=== PATIENT | female | born 1950 ===

== ENCOUNTER 2016-09-15 22:55 | Inpatient (IN) | payer MEDICARE, MEDICAID ==
[~2016-09-15] VITALS: Ht 152.4 cm; Wt 47.4 kg
[2016-09-16] VITALS (7 sets, daily range): BP systolic 131–164; RESP 16–20; TEMP 97.3–98.4; Ht 152.4 cm; Wt 47.4 kg
[2016-09-16] MEDS ORDERED: CEFTRIAXONE 1 GM VIAL ONE (02:12)
[2016-09-16] MEDS ORDERED: SODIUM CHLORIDE 0.9% 100 ML IV ONE (02:13)
[2016-09-16] MEDS ORDERED: SALINE FLUSH 10 ML FLUSH PRN (02:20)
[2016-09-16] MEDS ORDERED: SODIUM CHLORIDE 0.9% 1,000 ML ONE (02:43)
[2016-09-16] MEDS: SODIUM CHLORIDE 0.9% FLUSH BAG 500 ML IV SCH (05:57)
[2016-09-16] MEDS: SODIUM CHLORIDE 0.9% 1,000 ML IV SCH ×2 (05:57→15:53)
[2016-09-16] MEDS: LEVOTHYROXINE 0.1 MG TAB PO SCH (07:00)
[2016-09-16] MEDS ORDERED: MISSING DOSE XX ONE ×3 (07:55→18:15)
[2016-09-16] MEDS: SALINE FLUSH 10 ML FLUSH SCH ×2 (08:00→20:00)
[2016-09-16] MEDS: CEFTRIAXONE 1 GM in SODIUM CHLORIDE 0.9% 50 ML IV SCH (08:43)
[2016-09-16] MEDS: ACETAMINOPHEN 325 MG TAB PO PRN (13:26)
[2016-09-16] MEDS: NICOTINE 21 MG/24 HR TRANSDERM SCH (17:24)
[2016-09-16] MEDS: KETOROLAC 30 MG/ML VIAL IV SCH (18:37)
[2016-09-17] MEDS: SODIUM CHLORIDE 0.9% FLUSH BAG 500 ML IV SCH (06:00)
[2016-09-17 07:50] VITALS: BP_SYST 155; RESP 16; TEMP 98.3
[2016-09-17] MEDS: SALINE FLUSH 10 ML FLUSH SCH ×2 (07:57→20:28)
[2016-09-17] MEDS: KETOROLAC 30 MG/ML VIAL IV SCH ×3 (08:03→16:00)
[2016-09-17] MEDS: LEVOTHYROXINE 0.1 MG TAB PO SCH (08:04)
[2016-09-17] MEDS: CEFTRIAXONE 1 GM in SODIUM CHLORIDE 0.9% 50 ML IV SCH (09:49)
[2016-09-17] MEDS: NICOTINE 21 MG/24 HR TRANSDERM SCH (09:50)
[2016-09-17 11:32] VITALS: BP_SYST 154; RESP 16; TEMP 98.5
[2016-09-17 15:40] VITALS: BP_SYST 174; RESP 16; TEMP 98.5
[2016-09-17 19:27] VITALS: BP_SYST 140; RESP 18; TEMP 98.7
[2016-09-17 20:08] VITALS: BP_SYST 102; RESP 22; TEMP 97.6
[2016-09-17] MEDS: ACETAMINOPHEN 325 MG TAB PO PRN (20:25)
[2016-09-17 23:12] VITALS: BP_SYST 175; RESP 20; TEMP 97.2
[2016-09-18 03:44] VITALS: BP_SYST 131; RESP 18; TEMP 98
[2016-09-18] MEDS: ACETAMINOPHEN 325 MG TAB PO PRN ×2 (03:55→12:05)
[2016-09-18] MEDS: SODIUM CHLORIDE 0.9% FLUSH BAG 500 ML IV SCH (03:59)
[2016-09-18] MEDS: LEVOTHYROXINE 0.1 MG TAB PO SCH (03:59)
[2016-09-18] MEDS: KETOROLAC 30 MG/ML VIAL IV SCH ×4 (07:37→23:28)
[2016-09-18 08:03] VITALS: BP_SYST 143; RESP 18; TEMP 98.3
[2016-09-18] MEDS: NICOTINE 21 MG/24 HR TRANSDERM SCH (09:22)
[2016-09-18] MEDS: SALINE FLUSH 10 ML FLUSH SCH ×2 (09:22→20:29)
[2016-09-18] MEDS: CEFTRIAXONE 1 GM in SODIUM CHLORIDE 0.9% 50 ML IV SCH (09:23)
[2016-09-18 11:23] VITALS: BP_SYST 146; RESP 18; TEMP 98.6
[2016-09-18] MEDS: GABAPENTIN 100 MG CAP PO SCH ×3 (12:08→20:29)
[2016-09-18 16:59] VITALS: BP_SYST 167; RESP 18; TEMP 99
[2016-09-18 20:07] VITALS: BP_SYST 154; RESP 16; TEMP 98.4
[2016-09-19 03:52] VITALS: BP_SYST 110; RESP 18; TEMP 97.8
[2016-09-19] MEDS: LEVOTHYROXINE 0.1 MG TAB PO SCH (06:23)
[2016-09-19] MEDS: SODIUM CHLORIDE 0.9% FLUSH BAG 500 ML IV SCH (06:23)
[2016-09-19] MEDS: ACETAMINOPHEN 325 MG TAB PO PRN ×3 (06:24→20:00)
[2016-09-19 07:41] VITALS: BP_SYST 133; RESP 18; TEMP 98.2
[2016-09-19] MEDS: SALINE FLUSH 10 ML FLUSH SCH ×2 (08:38→20:00)
[2016-09-19] MEDS: CEFTRIAXONE 1 GM in SODIUM CHLORIDE 0.9% 50 ML IV SCH (08:39)
[2016-09-19] MEDS: KETOROLAC 30 MG/ML VIAL IV SCH ×2 (08:39→15:30)
[2016-09-19] MEDS: GABAPENTIN 100 MG CAP PO SCH ×3 (08:40→20:00)
[2016-09-19] MEDS: NICOTINE 21 MG/24 HR TRANSDERM SCH (08:40)
[2016-09-19 11:46] VITALS: BP_SYST 131; RESP 18; TEMP 98.3
[2016-09-19 15:59] VITALS: BP_SYST 155; RESP 18; TEMP 98.7
[2016-09-19 19:24] VITALS: BP_SYST 153; RESP 18; TEMP 99
[2016-09-19 23:00] VITALS: BP_SYST 169; RESP 18; TEMP 98.4
[2016-09-20] MEDS: KETOROLAC 30 MG/ML VIAL IV SCH ×3 (00:40→16:42)
[2016-09-20] MEDS: ACETAMINOPHEN 325 MG TAB PO PRN ×3 (03:50→20:54)
[2016-09-20 03:51] VITALS: BP_SYST 145; RESP 18; TEMP 98.4
[2016-09-20] MEDS: LEVOTHYROXINE 0.1 MG TAB PO SCH (06:40)
[2016-09-20] MEDS: SODIUM CHLORIDE 0.9% FLUSH BAG 500 ML IV SCH (06:40)
[2016-09-20 07:54] VITALS: BP_SYST 133; RESP 16; TEMP 97.7
[2016-09-20] MEDS: GABAPENTIN 100 MG CAP PO SCH ×3 (08:46→20:53)
[2016-09-20] MEDS: SALINE FLUSH 10 ML FLUSH SCH ×2 (08:47→20:52)
[2016-09-20] MEDS: NICOTINE 21 MG/24 HR TRANSDERM SCH (08:47)
[2016-09-20] MEDS: CEFTRIAXONE 1 GM in SODIUM CHLORIDE 0.9% 50 ML IV SCH (08:47)
[2016-09-20 11:55] VITALS: BP_SYST 143; RESP 20; TEMP 98.6
[2016-09-20 15:17] VITALS: BP_SYST 144; RESP 20; TEMP 99
[2016-09-20 20:00] VITALS: BP_SYST 150; RESP 20; TEMP 98.3
[2016-09-21] MEDS: KETOROLAC 30 MG/ML VIAL IV SCH ×3 (00:25→16:21)
[2016-09-21 00:39] VITALS: BP_SYST 146; RESP 18; TEMP 98
[2016-09-21 04:32] VITALS: BP_SYST 125; RESP 18; TEMP 97.4
[2016-09-21] MEDS: ACETAMINOPHEN 325 MG TAB PO PRN ×2 (05:36→14:56)
[2016-09-21] MEDS: LEVOTHYROXINE 0.1 MG TAB PO SCH (06:32)
[2016-09-21] MEDS: SODIUM CHLORIDE 0.9% FLUSH BAG 500 ML IV SCH (06:32)
[2016-09-21] MEDS: SALINE FLUSH 10 ML FLUSH SCH ×2 (08:38→20:20)
[2016-09-21] MEDS: GABAPENTIN 100 MG CAP PO SCH ×3 (08:39→20:20)
[2016-09-21] MEDS: NICOTINE 21 MG/24 HR TRANSDERM SCH (08:39)
[2016-09-21 08:59] VITALS: BP_SYST 122; RESP 18; TEMP 98
[2016-09-21 12:43] VITALS: BP_SYST 130; RESP 18; TEMP 97.8
[2016-09-21 20:00] VITALS: BP_SYST 156; RESP 18; TEMP 99.1
[2016-09-21 23:33] VITALS: BP_SYST 148; RESP 18; TEMP 97.7
[2016-09-22 03:15] VITALS: BP_SYST 121; RESP 18; TEMP 97.8
[2016-09-22] MEDS: ACETAMINOPHEN 325 MG TAB PO PRN ×2 (05:33→14:18)
[2016-09-22] MEDS: SODIUM CHLORIDE 0.9% FLUSH BAG 500 ML IV SCH (05:34)
[2016-09-22 07:17] VITALS: BP_SYST 140; RESP 18; TEMP 97.7
[2016-09-22] MEDS: NICOTINE 21 MG/24 HR TRANSDERM SCH (08:26)
[2016-09-22] MEDS: SALINE FLUSH 10 ML FLUSH SCH ×2 (08:26→19:39)
[2016-09-22] MEDS: LEVOTHYROXINE 0.1 MG TAB PO SCH (08:26)
[2016-09-22] MEDS: GABAPENTIN 100 MG CAP PO SCH ×3 (08:26→21:26)
[2016-09-22 11:01] VITALS: BP_SYST 140; RESP 18; TEMP 97.6
[2016-09-22] MEDS: TRAMADOL 50 MG TAB PO PRN ×2 (16:02→22:55)
[2016-09-22 16:43] VITALS: BP_SYST 148; RESP 18; TEMP 98.4
[2016-09-22 20:00] VITALS: BP_SYST 125; RESP 18; TEMP 98.5
[2016-09-22 23:29] VITALS: BP_SYST 138; RESP 18; TEMP 98
[2016-09-23 04:01] VITALS: BP_SYST 110; RESP 18; TEMP 97.9
[2016-09-23] MEDS: TRAMADOL 50 MG TAB PO PRN ×5 (04:44→22:09)
[2016-09-23] MEDS: SODIUM CHLORIDE 0.9% FLUSH BAG 500 ML IV SCH (06:00)
[2016-09-23] MEDS: LEVOTHYROXINE 0.1 MG TAB PO SCH (06:22)
[2016-09-23 07:30] VITALS: BP_SYST 111; RESP 18; TEMP 97.6
[2016-09-23] MEDS: SALINE FLUSH 10 ML FLUSH SCH ×2 (08:03→20:21)
[2016-09-23] MEDS: GABAPENTIN 100 MG CAP PO SCH ×3 (08:03→20:21)
[2016-09-23] MEDS: NICOTINE 21 MG/24 HR TRANSDERM SCH (08:04)
[2016-09-23] MEDS: ACETAMINOPHEN 325 MG TAB PO PRN (10:18)
[2016-09-23 11:52] VITALS: BP_SYST 93; RESP 18; TEMP 97.5
[2016-09-23 15:10] VITALS: BP_SYST 93; RESP 20; TEMP 97.6
[2016-09-23 18:56] VITALS: BP_SYST 100; RESP 20; TEMP 98.5
[2016-09-23 23:00] VITALS: BP_SYST 133; RESP 20; TEMP 97.9
[2016-09-24] MEDS: ACETAMINOPHEN 325 MG TAB PO PRN ×2 (01:30→20:01)
[2016-09-24] MEDS: TRAMADOL 50 MG TAB PO PRN ×3 (03:36→18:26)
[2016-09-24 04:21] VITALS: BP_SYST 108; RESP 20; TEMP 98
[2016-09-24] MEDS: SODIUM CHLORIDE 0.9% FLUSH BAG 500 ML IV SCH (04:49)
[2016-09-24] MEDS: LEVOTHYROXINE 0.1 MG TAB PO SCH (06:39)
[2016-09-24 07:28] VITALS: BP_SYST 123; RESP 18; TEMP 98
[2016-09-24] MEDS: NICOTINE 21 MG/24 HR TRANSDERM SCH (08:26)
[2016-09-24] MEDS: SALINE FLUSH 10 ML FLUSH SCH ×2 (08:27→20:00)
[2016-09-24] MEDS: GABAPENTIN 100 MG CAP PO SCH ×2 (08:27→20:01)
[2016-09-24 11:43] VITALS: BP_SYST 97; RESP 18; TEMP 98.1
[2016-09-24 15:47] VITALS: BP_SYST 109; RESP 18; TEMP 98.4
[2016-09-24 19:48] VITALS: BP_SYST 102; RESP 18; TEMP 98.7
[2016-09-24] MEDS: MICONAZOLE 2% CR 28 GM TOPICAL SCH (22:08)
[2016-09-24] MEDS: PANTOPRAZOLE 40 MG TAB PO SCH (22:08)
[2016-09-25] VITALS (7 sets, daily range): BP systolic 100–124; RESP 18–20; TEMP 97.5–98.3
[2016-09-25] MEDS: TRAMADOL 50 MG TAB PO PRN ×5 (00:08→23:40)
[2016-09-25] MEDS: SODIUM CHLORIDE 0.9% FLUSH BAG 500 ML IV SCH (03:30)
[2016-09-25] MEDS: LEVOTHYROXINE 0.1 MG TAB PO SCH (05:40)
[2016-09-25] MEDS: SALINE FLUSH 10 ML FLUSH SCH ×2 (08:00→19:56)
[2016-09-25] MEDS: NICOTINE 21 MG/24 HR TRANSDERM SCH (09:24)
[2016-09-25] MEDS: GABAPENTIN 100 MG CAP PO SCH ×2 (09:25→20:29)
[2016-09-25] MEDS: MICONAZOLE 2% CR 28 GM TOPICAL SCH ×2 (09:25→20:29)
[2016-09-25] MEDS: DUONEB INH SCH ×2 (15:15→23:57)
[2016-09-25] MEDS: PANTOPRAZOLE 40 MG TAB PO SCH (20:29)
[2016-09-25] MEDS: ACETAMINOPHEN 325 MG TAB PO PRN (20:31)
[2016-09-26] MEDS: SODIUM CHLORIDE 0.9% FLUSH BAG 500 ML IV SCH (06:00)
[2016-09-26] MEDS: LEVOTHYROXINE 0.1 MG TAB PO SCH (06:21)
[2016-09-26] MEDS: TRAMADOL 50 MG TAB PO PRN ×3 (06:22→20:41)
[2016-09-26] MEDS: DUONEB INH SCH ×4 (07:00→23:09)
[2016-09-26 08:02] VITALS: BP_SYST 127; RESP 18; TEMP 97.4
[2016-09-26] MEDS: SALINE FLUSH 10 ML FLUSH SCH ×2 (09:03→20:00)
[2016-09-26] MEDS: MICONAZOLE 2% CR 28 GM TOPICAL SCH ×2 (09:04→20:43)
[2016-09-26] MEDS: GABAPENTIN 100 MG CAP PO SCH ×3 (09:06→20:41)
[2016-09-26] MEDS: NICOTINE 21 MG/24 HR TRANSDERM SCH (09:06)
[2016-09-26 12:25] VITALS: BP_SYST 131; RESP 18; TEMP 97.5
[2016-09-26 15:52] VITALS: BP_SYST 103; RESP 18; TEMP 97.9
[2016-09-26] MEDS ORDERED: MISSING DOSE XX ONE (17:00)
[2016-09-26 19:42] VITALS: BP_SYST 117; RESP 20; TEMP 98.3
[2016-09-26] MEDS: PANTOPRAZOLE 40 MG TAB PO SCH (20:40)
[2016-09-26] MEDS: LACTOBACILLUS ACIDOPH CAP PO SCH (20:40)
[2016-09-26 22:34] VITALS: BP_SYST 115; RESP 18; TEMP 98.2
[2016-09-27] MEDS: SODIUM CHLORIDE 0.9% FLUSH BAG 500 ML IV SCH (02:54)
[2016-09-27] MEDS: TRAMADOL 50 MG TAB PO PRN ×4 (02:54→22:05)
[2016-09-27] MEDS: LEVOTHYROXINE 0.1 MG TAB PO SCH (06:19)
[2016-09-27] MEDS: DUONEB INH SCH ×3 (08:00→23:42)
[2016-09-27] MEDS: SALINE FLUSH 10 ML FLUSH SCH ×2 (08:00→20:00)
[2016-09-27 08:01] VITALS: BP_SYST 107; RESP 16; TEMP 97.8
[2016-09-27] MEDS: LACTOBACILLUS ACIDOPH CAP PO SCH ×2 (09:08→22:05)
[2016-09-27] MEDS: GABAPENTIN 100 MG CAP PO SCH ×3 (09:08→22:06)
[2016-09-27] MEDS: NICOTINE 21 MG/24 HR TRANSDERM SCH (09:09)
[2016-09-27] MEDS: MICONAZOLE 2% CR 28 GM TOPICAL SCH ×2 (09:11→22:07)
[2016-09-27 11:09] VITALS: BP_SYST 115; RESP 16; TEMP 97.6
[2016-09-27 15:00] VITALS: BP_SYST 111; RESP 16; TEMP 97.6
[2016-09-27 19:40] VITALS: BP_SYST 94; RESP 16; TEMP 98.2
[2016-09-27] MEDS: PANTOPRAZOLE 40 MG TAB PO SCH (22:05)
[2016-09-27 23:49] VITALS: BP_SYST 111; RESP 16; TEMP 97.8
[2016-09-28 04:44] VITALS: BP_SYST 113; RESP 18; TEMP 97.5
[2016-09-28] MEDS: LEVOTHYROXINE 0.1 MG TAB PO SCH (04:45)
[2016-09-28] MEDS: TRAMADOL 50 MG TAB PO PRN ×3 (04:46→18:40)
[2016-09-28 07:09] VITALS: BP_SYST 116; RESP 18; TEMP 98
[2016-09-28] MEDS: DUONEB INH SCH ×3 (07:42→23:24)
[2016-09-28] MEDS: SALINE FLUSH 10 ML FLUSH SCH ×2 (07:53→21:06)
[2016-09-28] MEDS: SODIUM CHLORIDE 0.9% FLUSH BAG 500 ML IV SCH (07:53)
[2016-09-28] MEDS: LACTOBACILLUS ACIDOPH CAP PO SCH ×2 (08:37→21:08)
[2016-09-28] MEDS: NICOTINE 21 MG/24 HR TRANSDERM SCH ×2 (08:37→10:21)
[2016-09-28] MEDS: GABAPENTIN 100 MG CAP PO SCH ×3 (08:37→21:08)
[2016-09-28] MEDS: MICONAZOLE 2% CR 28 GM TOPICAL SCH ×3 (08:38→22:25)
[2016-09-28] MEDS ORDERED: MISSING DOSE XX ONE ×2 (09:45→21:20)
[2016-09-28 12:04] VITALS: BP_SYST 107; RESP 18; TEMP 97.6
[2016-09-28 17:02] VITALS: BP_SYST 119; RESP 18; TEMP 97.8
[2016-09-28 19:28] VITALS: BP_SYST 117; RESP 18; TEMP 98
[2016-09-28] MEDS: PANTOPRAZOLE 40 MG TAB PO SCH (21:08)
[2016-09-28 23:01] VITALS: BP_SYST 91; RESP 18; TEMP 99
[2016-09-29] VITALS (8 sets, daily range): BP systolic 96–121; RESP 16–20; TEMP 97.7–98.7
[2016-09-29] MEDS: SODIUM CHLORIDE 0.9% FLUSH BAG 500 ML IV SCH (05:08)
[2016-09-29] MEDS: DUONEB INH SCH ×3 (07:11→22:58)
[2016-09-29] MEDS: LEVOTHYROXINE 0.1 MG TAB PO SCH (07:47)
[2016-09-29] MEDS: NICOTINE 21 MG/24 HR TRANSDERM SCH (08:09)
[2016-09-29] MEDS: SALINE FLUSH 10 ML FLUSH SCH ×2 (08:09→20:00)
[2016-09-29] MEDS: GABAPENTIN 100 MG CAP PO SCH ×3 (08:10→20:23)
[2016-09-29] MEDS: TRAMADOL 50 MG TAB PO PRN ×3 (08:10→20:16)
[2016-09-29] MEDS: LACTOBACILLUS ACIDOPH CAP PO SCH ×2 (08:11→20:23)
[2016-09-29] MEDS: MICONAZOLE 2% CR 28 GM TOPICAL SCH ×2 (08:11→20:24)
[2016-09-29] MEDS: ACETAMINOPHEN 325 MG TAB PO PRN (11:59)
[2016-09-29] MEDS: PANTOPRAZOLE 40 MG TAB PO SCH (20:23)
[2016-09-30] MEDS: TRAMADOL 50 MG TAB PO PRN ×4 (02:37→22:36)
[2016-09-30 03:50] VITALS: BP_SYST 128; RESP 20; TEMP 98
[2016-09-30] MEDS: SODIUM CHLORIDE 0.9% FLUSH BAG 500 ML IV SCH (04:44)
[2016-09-30] MEDS: LEVOTHYROXINE 0.1 MG TAB PO SCH (06:43)
[2016-09-30] MEDS: ACETAMINOPHEN 325 MG TAB PO PRN (06:49)
[2016-09-30 07:17] VITALS: BP_SYST 117; RESP 20; TEMP 98.3
[2016-09-30] MEDS: DUONEB INH SCH ×3 (07:38→23:27)
[2016-09-30] MEDS: SALINE FLUSH 10 ML FLUSH SCH ×2 (08:00→20:00)
[2016-09-30] MEDS: LACTOBACILLUS ACIDOPH CAP PO SCH ×2 (08:16→20:32)
[2016-09-30] MEDS: NICOTINE 21 MG/24 HR TRANSDERM SCH (08:16)
[2016-09-30] MEDS: GABAPENTIN 100 MG CAP PO SCH ×3 (08:16→20:32)
[2016-09-30] MEDS: MICONAZOLE 2% CR 28 GM TOPICAL SCH ×2 (08:17→20:34)
[2016-09-30] MEDS ORDERED: LIDOCAINE 5% 700 MG PATCH TOPICAL SCH (09:00)
[2016-09-30 11:07] VITALS: BP_SYST 116; RESP 20; TEMP 97.8
[2016-09-30 15:05] VITALS: BP_SYST 123; RESP 20; TEMP 98.1
[2016-09-30 19:52] VITALS: BP_SYST 103; RESP 18; TEMP 98.3
[2016-09-30] MEDS: PANTOPRAZOLE 40 MG TAB PO SCH (20:32)
[2016-09-30] MEDS: [UNRECOGNIZED DRUG - OTHER] TOPICAL SCH (20:33)
[2016-09-30 23:56] VITALS: BP_SYST 116; RESP 18; TEMP 98.2
[2016-10-01] MEDS: SODIUM CHLORIDE 0.9% FLUSH BAG 500 ML IV SCH (02:54)
[2016-10-01 04:09] VITALS: BP_SYST 109; RESP 18; TEMP 98.2
[2016-10-01] MEDS: LEVOTHYROXINE 0.1 MG TAB PO SCH (06:23)
[2016-10-01] MEDS: DUONEB INH SCH ×3 (07:34→22:11)
[2016-10-01 07:37] VITALS: BP_SYST 97; RESP 20; TEMP 97.6
[2016-10-01] MEDS: SALINE FLUSH 10 ML FLUSH SCH ×2 (08:00→20:00)
[2016-10-01] MEDS: [UNRECOGNIZED DRUG - OTHER] TOPICAL SCH (08:06)
[2016-10-01] MEDS: NICOTINE 21 MG/24 HR TRANSDERM SCH (08:07)
[2016-10-01] MEDS: GABAPENTIN 100 MG CAP PO SCH ×3 (08:08→20:34)
[2016-10-01] MEDS: LACTOBACILLUS ACIDOPH CAP PO SCH ×2 (08:08→20:35)
[2016-10-01] MEDS: TRAMADOL 50 MG TAB PO PRN ×3 (08:09→20:35)
[2016-10-01] MEDS: MICONAZOLE 2% CR 28 GM TOPICAL SCH ×2 (08:10→20:38)
[2016-10-01 11:40] VITALS: BP_SYST 122; RESP 20; TEMP 97.3
[2016-10-01] MEDS ORDERED: hydrOXYzine 10 MG TAB PO PRN (14:15)
[2016-10-01 16:04] VITALS: BP_SYST 112; RESP 20; TEMP 97.6
[2016-10-01 19:21] VITALS: BP_SYST 108; RESP 18; TEMP 97.3
[2016-10-01] MEDS: PANTOPRAZOLE 40 MG TAB PO SCH (20:34)
[2016-10-02 01:00] VITALS: BP_SYST 105; RESP 18; TEMP 97.9
[2016-10-02] MEDS: ACETAMINOPHEN 325 MG TAB PO PRN (01:13)
[2016-10-02 03:59] VITALS: BP_SYST 124; RESP 18; TEMP 97.6
[2016-10-02] MEDS: TRAMADOL 50 MG TAB PO PRN ×2 (04:05→11:28)
[2016-10-02] MEDS: SODIUM CHLORIDE 0.9% FLUSH BAG 500 ML IV SCH (06:00)
[2016-10-02] MEDS: DUONEB INH SCH ×2 (06:37→14:55)
[2016-10-02 07:12] VITALS: BP_SYST 99; RESP 20; TEMP 97.9
[2016-10-02] MEDS: LEVOTHYROXINE 0.1 MG TAB PO SCH (07:21)
[2016-10-02] MEDS: SALINE FLUSH 10 ML FLUSH SCH (07:34)
[2016-10-02] MEDS: GABAPENTIN 100 MG CAP PO SCH ×2 (08:28→15:28)
[2016-10-02] MEDS: LACTOBACILLUS ACIDOPH CAP PO SCH ×2 (08:28→12:00)
[2016-10-02] MEDS: NICOTINE 21 MG/24 HR TRANSDERM SCH (08:29)
[2016-10-02] MEDS: MICONAZOLE 2% CR 28 GM TOPICAL SCH (08:29)
[2016-10-02] MEDS ORDERED: ACETAMINOPHEN 500 MG TAB PO SCH (09:00)
[2016-10-02 12:16] VITALS: BP_SYST 118; RESP 20; TEMP 98.9
[2016-10-02 13:54] VITALS: BP_SYST 118; RESP 20; TEMP 98.9
[2016-10-02] MEDS ORDERED: TRAZODONE 50 MG TAB PO SCH (21:00)
== END 2016-10-02 16:20 | disposition home or self-care (01) | DRG 689 ==
LOC: ENRESERVDT → ENRESERVTM → ER 22:55 → EMR 22:56 → 4NT 09-16 04:04 → ENPENDDIS 09-17 07:52 → OBSVTOIN 09-17 07:52
PROVIDERS: ADMIT Family Medicine; ATTEND Family Medicine
DX: N39.0 Urinary tract infection, site not specified (principal); G93.41 Metabolic encephalopathy; J44.1 Chronic obstructive pulmonary disease with (acute) exacerbation; F03.90 Unspecified dementia, unspecified severity, without behavioral disturbance, psychotic disturbance, mood disturbance, and anxiety; F11.20 Opioid dependence, uncomplicated; J44.9 Chronic obstructive pulmonary disease, unspecified; G89.29 Other chronic pain; M54.5 Low back pain; E03.9 Hypothyroidism, unspecified; G62.9 Polyneuropathy, unspecified; E86.0 Dehydration; Y92.009 Unspecified place in unspecified non-institutional (private) residence as the place of occurrence of the external cause; T40.605A Adverse effect of unspecified narcotics, initial encounter; E78.5 Hyperlipidemia, unspecified; M81.0 Age-related osteoporosis without current pathological fracture; E86.1 Hypovolemia
CPT/HCPCS: 36415; 36600; 70450; 71010; 80053; 80061; 80307; 81001; 82553; 82803; 82947; 83880; 84439; 84443; 84484; 85025; 85379; 85384; 85610; 85730; 86480; 87040; 87088; 87493; 93005; 94640; 96361; 96365; 99219; 99231; 99232; 99233; 99239; 99308